=== PATIENT | female | born 1940 | race Caucasian/White ===

== ENCOUNTER 2020-08-13 10:33 | Emergency (ER) | payer OTHER, MEDICAID ==
[~2020-08-13] VITALS: Ht 160 cm; Wt 99.8 kg
[2020-08-13 10:33] VITALS: BP_SYST 150
--- NOTE | 2020-08-13 10:33 | NUR ---
Placed in room 2. Placed on environmental monitoring specialist, blood pressure machine and pulse oximeter. To gown for exam. Side rails up. Report given to BEHZAD Loyola.
--- NOTE | 2020-08-13 10:35 | NUR ---
Pt came to ER for gen weakness pt does not have any pain at this time, resting comfortably in gurney, on monitor.
--- NOTE | 2020-08-13 10:45 | NUR ---
ER at bedside examining patient.
[2020-08-13] MEDS ORDERED: OMEP40CA13 PO (10:58)
[2020-08-13] MEDS ORDERED: BUPR150T9 PO (10:58)
[2020-08-13] MEDS ORDERED: GLIP10TA21 PO (10:58)
[2020-08-13] MEDS ORDERED: METF-795 PO (10:58)
[2020-08-13] MEDS ORDERED: LAMO100T31 PO ×2 (10:58)
[2020-08-13] MEDS ORDERED: LISI-600 PO (10:58)
[2020-08-13] MEDS ORDERED: PRAM0.253 PO (10:58)
[2020-08-13] MEDS ORDERED: LIP80 PO (10:58)
[2020-08-13] MEDS ORDERED: METO10TA3 PO (10:58)
[2020-08-13] MEDS ORDERED: NEU100 PO (10:58)
[2020-08-13] MEDS ORDERED: [UNRECOGNIZED DRUG - CODE] PO (10:58)
[2020-08-13] MEDS ORDERED: INSU100V9 (10:58)
--- NOTE | 2020-08-13 10:58 | NUR ---
Medication reconciliation completed with information provided by patient. Any prior medication reconciliation on file was reviewed and corrected.
[2020-08-13] MEDS ORDERED: NACL 0.9% 1,000 ML IV ONE (11:10)
[2020-08-13 11:59] LABS: BASOPHILS # (AUTO) 0.1 K/uL (0.0-0.2); BASOPHILS % (AUTO) 0.9 % (0.0-2.0); EOSINOPHILS # (AUTO) 0.1 K/uL (0.0-0.4); EOSINOPHILS % (AUTO) 2.1 % (0.0-4.0); HEMATOCRIT 32.9 % (36-48); HEMOGLOBIN 11.1 g/dL (12.0-16.0); LYMPHOCYTES # (AUTO) 1.9 K/uL (1.0-5.5); LYMPHOCYTES % (AUTO) 28.9 % (20.5-51.5); MEAN CORPUSCULAR HEMOGLOBIN 27 pg (27-31); MEAN CORPUSCULAR HGB CONC 34 % (32-36); MEAN CORPUSCULAR VOLUME 79 fL (79.0-98.0); MONOCYTES # (AUTO) 0.5 K/uL (0.0-1.0); MONOCYTES % (AUTO) 7.2 % (1.7-9.3); NEUTROPHILS # (AUTO) 4.1 K/uL (1.8-7.7); NEUTROPHILS % (AUTO) 60.9 % (40.0-70.0); PLATELET COUNT (AUTO) 158 K/uL (130-430); RED BLOOD CELL COUNT(AUTO) 4.15 MIL/uL (4.2-6.2); RED CELL DISTRIBUTION WIDTH 18.3 % (9.0-15.0); WHITE BLOOD COUNT (AUTO) 6.7 K/uL (4.8-10.8)
[2020-08-13 12:15] LABS: ANION GAP 7 (5-15); CALCIUM 9.3 mg/dL (8.4-11.0); CHLORIDE 106 mmol/L (98-107); CREATININE 1.21 mg/dL (0.55-1.30); GLUCOSE 74 mg/dL (70-99); POTASSIUM 4.5 mmol/L (3.5-5.1); SODIUM SERUM 140 mmol/L (136-145); UREA NITROGEN, BLOOD 16 mg/dL (8-21)
[2020-08-13 12:17] LABS: PROTHROMBIN TIME 10.2 SECS (9.5-12.5)
[2020-08-13 12:19] LABS: ALANINE AMINOTRANSFERASE 44 U/L (12-78); ALBUMIN 3.7 g/dL (3.4-4.8); ASPARTATE AMINOTRANSFERASE 32 U/L (10-37); TOTAL BILIRUBIN 0.2 mg/dL (0.0-1.0)
--- NOTE | 2020-08-13 12:42 | NUR ---
Pt resting in [facility] at this time VSS, no distress
--- NOTE | 2020-08-13 14:08 | NUR ---
Pt resting in [facility] at this time, no distress noted, VSS
[2020-08-13] MEDS ORDERED: MECLIZINE HCL 25 MG TABLET (ANITVERT) PO ONE (15:45)
--- NOTE | 2020-08-13 16:00 | NUR ---
Pt resting in [facility] at this time reports no distress
--- NOTE | 2020-08-13 16:30 | NUR ---
Patient transported to radiology via gurney, accompanied by tech/RN.
--- NOTE | 2020-08-13 16:49 | NUR ---
Returned to ED from radiology
--- NOTE | 2020-08-13 17:56 | NUR ---
Pt resting in [facility] at this time VSS no distress noted.
--- NOTE | 2020-08-13 18:24 | NUR ---
Pt resting in [facility] no dizziness at this time.
[2020-08-13 18:58] VITALS: BP_SYST 178
--- NOTE | 2020-08-13 18:58 | NUR ---
Patient given written and verbal discharge instructions and verbalizes understanding. ER MD discussed with patient the results and treatment provided. Patient in stable condition. ID arm band removed. IV catheter removed intact and dressing applied, no active bleeding. Rx of Meclizine given. Patient educated on pain management and to follow up with PMD. Pain Scale 0/10. Opportunity for questions provided and answered. Medication side effect fact sheet provided.
== END 2020-08-13 18:58 | disposition home or self-care (01) ==
LOC: EDSEX 10:33 → SED 10:33
DX: R53.1 Weakness (principal); R42 Dizziness and giddiness; I10 Essential (primary) hypertension; E11.9 Type 2 diabetes mellitus without complications; E78.5 Hyperlipidemia, unspecified; Z90.49 Acquired absence of other specified parts of digestive tract; Z79.4 Long term (current) use of insulin; Z79.899 Other long term (current) drug therapy; Z88.1 Allergy status to other antibiotic agents
CPT/HCPCS: 36415; 70450; 71045; 80053; 81002; 83605; 84484; 85025; 85610; 85730; 93005; 96360; 99285; J7030; J8597